=== PATIENT | female | born 1990 | race Caucasian/White ===

== ENCOUNTER 2018-07-16 11:44 | Emergency (ER) | payer BC | END 2018-07-16 12:33 | disposition home or self-care (01) | LOC: SCSER 11:44 | DX: O90.2 Hematoma of obstetric wound (principal); O99.73 Diseases of the skin and subcutaneous tissue complicating the puerperium; L25.9 Unspecified contact dermatitis, unspecified cause | CPT/HCPCS: 99284 ==